=== PATIENT | male | born 1965 | race Caucasian/White ===

== ENCOUNTER 2019-07-13 13:07 | Emergency (ER) | payer OTHER ==
[~2019-07-13] VITALS: Ht 177.8 cm; Wt 90.9 kg
--- NOTE | 2019-07-13 13:31 | PHYS DOC ---
Past History Past Medical History: High Cholesterol, Hypothyroid Additional Past Medical Histor: HIV Alcohol Use: None General Adult EDM: Chief Complaint: BACK PAIN - NO INJURY HPI: HPI: Patient is a 54-year-old male who presents to the emergency department for evaluation of lower back pain, radiating from his lower spine, towards his hips and legs bilaterally. Movement worsens his pain. He states he has been to the chiropractor twice without improvement in his symptoms. He denies any numbness, weakness, incontinence, fevers or chills, or any traumatic injuries, he has not had any saddle anesthesia. Other than as stated above there are no alleviating or exacerbating factors to his symptoms. He states that on prior lumbar spine CT imaging he has had suggestion of degenerative disc disease. Patient is HIV positive but reports compliance with his medications, and states his last viral load was undetectable and his CD4 count was over 800 about 3 months ago. Review of Systems: Review of Systems: Constitutional: Denies fever or chills Eyes: Denies change in visual acuity HENT: Denies nasal congestion or sore throat Respiratory: Denies cough or shortness of breath Cardiovascular: Denies chest pain or edema GI: Denies abdominal pain, nausea, vomiting, bloody stools or diarrhea : Denies dysuria Musculoskeletal: Denies upper back pain or joint pain Integument: Denies rash Neurologic: Denies headache, focal weakness or sensory changes Endocrine: Denies polyuria or polydipsia Lymphatic: Denies swollen glands Psychiatric: Denies depression or anxiety Heart Score: Risk Factors: Risk Factors: DM, Current or recent (<one month) smoker, HTN, HLP, family history of CAD, obesity. Risk Scores: Score 0 - 3: 2.5% MACE over next 6 weeks - Discharge Home Score 4 - 6: 20.3% MACE over next 6 weeks - Admit for Clinical Observation Score 7 - 10: 72.7% MACE over next 6 weeks - Early Invasive Strategies Current Medications: Current Meds: Current Medications Medications (Trade) Dose Ordered Sig/Brittanie Start Time Stop Time Status Last Admin Dose Admin Ibuprofen (Motrin) 600 mg 1X ONCE 07/13/19 13:30 07/13/19 13:31 UNV Allergies: Allergies: Allergies Coded Allergies Type Severity Reaction Last Updated Verified Iodinated Contrast Media Allergy Unknown 07/13/19 Yes Penicillins Allergy Unknown 07/13/19 Yes Sulfa (Sulfonamide Antibiotics) Allergy Unknown 07/13/19 Yes cephalexin Allergy Unknown 07/13/19 Yes morphine Allergy Unknown 07/13/19 Yes Physical Exam: PE: PHYSICAL EXAM: CONSTITUTIONAL: Well developed, well nourished HEAD: normocephalic, atraumatic EENT: PERRL, EOMI. Conjunctivae normal color, sclerae non-icteric; moist mucous membranes. NECK: Supple, non-tender; no meningismus. LUNGS: Lungs CTA, breathing even and unlabored. Normal air movement. HEART: Regular rate and rhythm, no murmur CHEST: No deformity; non-tender ABDOMEN: The abdomen is soft, and non-tender, no masses or bruits. EXTREM: Normal ROM; no deformity, no calf tenderness. Normal pulses palpable in all extremities. There is no pedal edema. SKIN: No rash; no diaphoresis NEURO: Alert; normal speech and cognition; CN's grossly intact; strength grossly intact without focal deficit. Patellar reflexes are 1+ bilaterally, there is no foot drop. There is no distal or perineal anesthesia. Patient ambulates with a steady gait. BACK: No CVA TTP. There is mild tenderness palpation of the lower lumbar spine, both midline and paraspinal without any definite bony tenderness to palpation. EKG: EKG: [] Radiology/Procedures: Radiology/Procedures: PROCEDURE: ACUTE ABDOMEN SERIES ACUTE ABDOMEN SERIES History: Nausea vomiting. Technique: Supine and upright views of the abdomen. Comparison: Chest x-ray April 02, 2019 Findings: Low lung volumes. Patchy central and bibasilar opacities. No pneumothorax. No pleural effusion. No pneumoperitoneum. Paucity of bowel gas. Minimal air scattered throughout the colon. Surgical clips right upper quadrant. No air-fluid levels. Impression: 1. Paucity of bowel gas. Nonobstructed bowel gas pattern. 2. Low lung volumes with patchy central and bibasilar opacities, may represent atelectasis. [] Course & Med Decision Making: Course & Med Decision Making Pertinent Imaging studies reviewed. (See chart for details) [] 2:05 PM: Patient remains stable. I discussed test results, the need for close follow-up, and return precautions. Dragon Disclaimer: [place] Disclaimer: This electronic medical record was generated, in whole or in part, using a voice recognition dictation system. Departure Departure: Impression: Primary Impression: Low back pain Disposition: HOME/RESIDENCE PRIOR TO ADM Condition: STABLE Referrals: COURTNEY KEARNS MD (PCP) Patient Instructions: Back Pain, Adult, Degenerative Disk Disease Additional Instructions: Ibuprofen 400-600 mg every 6 hours may help improve your symptoms. Applying a heating pad to the affected area may help improve your symptoms. The prescribed medications may cause drowsiness-use caution while taking. Follow-up with Dr. Zazueta, neurosurgery, call [phone] to schedule appoint ment. Scripts Cyclobenzaprine Hcl (CYCLOBENZAPRINE HCL) 10 Mg Tablet 1 TAB PO TID PRN for PAIN, #20 TAB Prov: JAYSON VILLALOBOS MD 07/13/19 JAYSON VILLALOBOS MD July 13, 2019 13:31
[2019-07-13] MEDS ORDERED: IBUPROFEN 600 MG TABLET. PO ONE (13:45)
--- NOTE | 2019-07-13 13:54 | RAD ---
LUMBAR SPINE 2-3V History: Back pain Technique: 3 views lumbar spine. Comparison: None. Findings: Mild L1 retrolisthesis. Otherwise, normal vertebral body alignment and height. No fracture. Mild multilevel degenerative disc changes most prominent L5-S1. Mild lower lumbar facet arthropathy. Surgical clips right upper quadrant. Impression: 1. No acute osseous abnormality. 2. Mild multilevel lumbar spondylosis most prominent L5-S1. Electronically signed by: John Erwin DO (07/13/2019 1:52 PM) [id number]
[2019-07-13] MEDS ORDERED: CYCL-331 PO (14:12)
[2019-07-13 14:24] VITALS: BP 150/99
== END 2019-07-13 14:25 | disposition home or self-care (01) ==
LOC: ER 13:07
DX: M54.5 Low back pain (principal); E78.00 Pure hypercholesterolemia, unspecified; I10 Essential (primary) hypertension; Z88.0 Allergy status to penicillin; Z88.2 Allergy status to sulfonamides; Z88.5 Allergy status to narcotic agent; Z88.1 Allergy status to other antibiotic agents; Z91.041 Radiographic dye allergy status
CPT/HCPCS: 72100; 99283